=== PATIENT | female | born 1945 | race Caucasian/White ===

== ENCOUNTER 2018-05-21 13:37 | Emergency (ER) | payer OTHER, MEDICAID ==
[~2018-05-21] VITALS: Ht 162.6 cm; Wt 45.4 kg
[2018-05-21] MEDS ORDERED: PERCOCET PO (14:57)
[2018-05-21] MEDS ORDERED: NABUMETONE 750750 M1 PO (14:57)
[2018-05-21 15:40] VITALS: BP 129/68
== END 2018-05-21 15:40 | disposition home or self-care (01) ==
LOC: M.ERS 13:37
DX: S42.212A Unspecified displaced fracture of surgical neck of left humerus, initial encounter for closed fracture (principal); W01.198A Fall on same level from slipping, tripping and stumbling with subsequent striking against other object, initial encounter; Y93.89 Activity, other specified; Y92.89 Other specified places as the place of occurrence of the external cause; Y99.8 Other external cause status

== ENCOUNTER 2020-05-04 09:39 | Emergency (ER) | payer MEDICARE ==
[~2020-05-04] VITALS: Ht 160 cm; Wt 40.8 kg
[~2020-05-04 09:39] MED LIST: NABUMETONE 750750 M1 PO; PERCOCET PO
[2020-05-04] MEDS ORDERED: NORCO 5-325 TA1 EAC2 PO (10:13)
[2020-05-04 10:23] VITALS: BP 166/89
== END 2020-05-04 10:24 | disposition home or self-care (01) ==
LOC: M.ERS 09:39
DX: S90.32XA Contusion of left foot, initial encounter (principal); X50.9XXA Other and unspecified overexertion or strenuous movements or postures, initial encounter; Y93.89 Activity, other specified; Y92.89 Other specified places as the place of occurrence of the external cause; Y99.8 Other external cause status